=== PATIENT | male | born 1995 | race Hispanic/Latino ===

== ENCOUNTER → 2019-05-24 | Day surgery (SDC) | payer BC ==
[~2019-05-24] MED LIST: CEFAZOLIN/SWI 1gm 1 GM/10 ML SYR ONE; FENTANYL CITR 100 MCG/2 ML ONE; GLYCOPYRROLATE 0.2 MG/ML SYR ONE; LIDOCAINE 2% MPF 5 ML VIAL ONE; LIDOCAINE JELLY 2%- 5 ML TUBE ONE; MIDAZOLAM HCL 2 MG/2 ML INJ ONE; NEOSTIGMINE 1 MG/ML -5 ML ONE; ONDANSETRON 4 MG/2 ML VIAL ONE; ROCURONIUM 50 MG/5 ML VIAL IV ONE; Ringers Lactate 1,000 ML IV ONE; propofoL 200 MG/20 ML VIAL IV ONE
--- NOTE | 2019-05-24 08:01 | P.HP ---
Date of Service: 05/24/19 PC: This 23-year-old male presents for a wide excision of a pilonidal sinus complex HPC: Patient has had recurrent bouts with pilonidal sinuses over the years. These have been is size is drained allowed to heal with secondary intention. He had done quite well for the last 2 years but now has a recurrence. PMH: Next PSHx: Previous incision drainage of pilonidal abscess SOC: Negative SYS REVIEW: No cough, wheeze, shortness of breath. No chest pain or palpitations. Denies any urinary complaints O/E awake alert vital signs are stable HEENT: Within normal limits Chest: Clear ABD: Soft nontender LOCO: The cleft has area of inflammation consistent with bilateral abscesses DATA: Negative IMPRESSION: Pilonidal abscess PLAN: This patient has failed nonsurgical management. At the current time has a persistent abscess that will not heal. I will take him to the operating room for excision of this pilonidal. The risks of this procedure have been discussed. The possibility of bleeding, infection, need for further surgeries and procedures was discussed. Recurrence and surgery being non the curative was outlined. He understands and wants to proceed. PC: HPC: PMH: PSHx: SOC: SYS REVIEW: O/E HEENT: Chest: ABD: LOCO: DATA: IMPRESSION: PLAN:
--- NOTE | 2019-05-24 10:13 | P.OP ---
Preoperative diagnosis: Pilonidal sinus Postoperative diagnosis: The same Primary procedure: Excision of pilonidal sinus Anesthesia: General Estimated blood loss: Less than 10 cc Specimen: Sinus tract Operative Technique: The patient brought the operating room and placed supine on the transport cart. After the induction of adequate general endotracheal anesthesia he was rolled prone onto the OR table. After careful positioning the area of the cleft was prepped with a Betadine solution use draped in usual aseptic manner. Attention was turned towards the lisa cleft. We could see just to the right of the midline there was a area of chronic scar tissue. The setup like a small pimple measuring approximately 1.5 cm in size. Further on down there was opening through which was a large air protruding. Gentle probing of this showed the this was a fistulous tract. At this point the dimple was incised circumferentially. The subcutaneous tissue was now mobilize. We were able to take this tract and dissected free from this underlying tissue to the opening inferiorly. This area was then opened up with a lateral incision. The length of this incision is approximately 3 and 0.5 inches long and at the top of 1 inch. The tract having been excise air is inspected to ensure adequate hemostasis. No other was but no other pathology was noted in this area the subcutaneous tissue. The tissue was now reapproximated using interrupted sutures of 2 O Vicryl. These were placed as positional stitches to help approximate and hold the skin edges and subcutaneous tissue in position. The skin was then closed with a running suture of 3 0 chromic. Dermabond was applied to the skin in a suction dressing was applied to apply pressure to the area to help with adherence of the skin to the midline At the end of procedure he was stable when sent to the recovery room. Needle sponge instrument count were correct. No drains were placed.
[2019-05-24 10:26] VITALS: O2SAT 100
[2019-05-24 13:34] VITALS: BP 136/86; TEMP 97.6
== END | disposition home or self-care (01) ==
LOC: OR 08:03
PROVIDERS: ATTEND Surgery
PROC: 0JB90ZZ Excision of Buttock Subcutaneous Tissue and Fascia, Open Approach (ICD-10-PCS; principal; 2019-05-24 08:30)
DX: L05.92 Pilonidal sinus without abscess (principal); Z88.2 Allergy status to sulfonamides; Z88.3 Allergy status to other anti-infective agents
CPT/HCPCS: 11771; 88304; J2704; J2250; J3010 ×2; J2710; J0690; J7120; J2405